=== PATIENT | female | born 1955 | race Caucasian/White ===

== ENCOUNTER 2016-09-24 13:45 | Emergency (ER) | payer BC ==
[2016-09-24 15:46] VITALS: BP 139/87
--- NOTE | 2016-09-24 16:30 | UC ---
Throat Pain/Nasal Chace HPI - HPI Summary HPI Summary: sinus pressure/pain, makes teeth ache. Ears feel plugged. Headaches. Malaise, low energy. Constant bloody post-nasal drip, can't blow secretions out her nose. Has had similar symptoms in past with sinusitis. MIld dry cough. Did have a cold last month, this seems to be the follow-on. Able to eat. No ST. - History of Current Complaint Chief Complaint: UCRespiratory Stated Complaint: SINUS COMPLAINT Time Seen by Provider: 09/24/16 15:41 Hx Obtained From: Patient Onset/Duration: Gradual Onset, Lasting Weeks - 3 Severity: Moderate Cough: Nonproductive Associated Signs & Symptoms: Positive: Sinus Discomfort. Negative: Dysphagia, FB Sensation, Wheezing, Hoarseness, Nasal Discharge, Fever, Vomiting, Rash - Epiglottits Risk Factors Epiglottis Risk Factors: Negative - Allergies/Home Medications Allergies/Adverse Reactions: Allergies Allergy/AdvReac Type Severity Reaction Status Date / Time Adhesive Tape Allergy Severe Rash Verified 09/24/16 15:47 Oxycodone Allergy Severe Rash And Verified 09/24/16 15:47 Itching Sulfa Drugs Allergy Intermediate Rash Verified 09/24/16 15:47 Atorvastatin [From Lipitor] Allergy Leg Cramps Verified 09/24/16 15:47 Hydrochlorothiazide Allergy Rash Verified 09/24/16 15:47 ENVIRONMENTAL/SEASONAL Allergy Congestion Uncoded 09/24/16 15:47 Home Medications: Home Medications Sertraline* [Zoloft*] 25 mg PO DAILY 09/24/16 [History Confirmed 09/24/16] Sitagliptin Phosphate [Januvia] 25 mg PO DAILY 09/24/16 [History Confirmed 09/24] PMH/Surg Hx/FS Hx/Imm Hx Endocrine History Of: Reports: Diabetes - insulin Cardiovascular History Of: Reports: Cardiac Disorders - heart murmur, Hypertension Denies: Myocardial Infarction Respiratory History Of: Reports: Asthma - HX OF NO INHALER USE IN OVER 10 YEARS Denies: COPD Psychological History Of: Reports: Anxiety, Depression Cancer History Of: Denies: Breast Cancer - Surgical History Surgical History: Yes Surgery Procedure, Year, and Place: HYSTERECTOMY, [facility] [place]. [address]AR[address], [facility] [place]. 2007 VARICOSE VEIN SURGERY, [facility] [place]. 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 Lives: With Family Alcohol Use: Daily Alcohol Amount: glass of wine daily Substance Use Type: None Smoking Status (MU): Never Smoked Tobacco - Immunization History Most Recent Influenza Vaccination: fall 2015 Most Recent Tetanus Shot: UP TO DATE Most Recent Pneumonia Vaccination: NA Review of Systems Constitutional: Negative Skin: Negative Eyes: Negative ENT: Ear Ache, Other - sinus pain Respiratory: Negative Cardiovascular: Negative Gastrointestinal: Negative Genitourinary: Negative Motor: Negative Neurovascular: Negative Musculoskeletal: Negative Neurological: Negative Psychological: Negative All Other Systems Reviewed And Are Negative: Yes Physical Exam Triage Information Reviewed: Yes Appearance: Well-Appearing, No Pain Distress, Well-Nourished Vital Signs: Initial Vital Signs Temp 98.7 F 09/24/16 15:39 Pulse 109 09/24/16 15:39 Resp 20 09/24/16 15:39 BP 139/87 09/24/16 15:39 Pulse Ox 96 09/24/16 15:39 Vital Signs Reviewed: Yes Eye Exam: Normal ENT: Positive: Hearing grossly normal, Pharynx normal, Nasal congestion, TMs normal. Negative: Nasal drainage, Tonsillar swelling, Tonsillar exudate, Trismus, Muffled/hoarse voice Dental Exam: Normal Neck exam: Normal Respiratory Exam: Normal Cardiovascular Exam: Normal Musculoskeletal Exam: Normal Neurological Exam: Normal Neurological: Positive: Alert, Muscle Tone Normal Psychological Exam: Normal Skin Exam: Normal Throat Pain/Nasal Course/Dx - Differential Dx/Diagnosis Differential Diagnosis/HQI/PQRI: Sinusitis, URI Provider Diagnoses: sinusitis Discharge - Discharge Plan Condition: Stable Disposition: HOME Prescriptions: Cephalexin CAP* [Keflex 500 CAP*] 500 mg PO QID #40 cap Fluconazole [Diflucan 150 MG (NF)] 150 mg PO ONCE PRN #1 tab PRN Reason: vaginal itching Patient Education Materials: Sinusitis (ED) Referrals: Moreno Crowley MD [Primary Care Provider] -
== END 2016-09-24 16:35 | disposition home or self-care (01) ==
LOC: UCCORT 13:45
DX: J32.9 Chronic sinusitis, unspecified (principal); E11.9 Type 2 diabetes mellitus without complications; F32.9 Major depressive disorder, single episode, unspecified; Z79.4 Long term (current) use of insulin; Z88.2 Allergy status to sulfonamides; Z88.5 Allergy status to narcotic agent; Z88.8 Allergy status to other drugs, medicaments and biological substances
CPT/HCPCS: 99212; G0463

== ENCOUNTER 2017-08-07 15:12 | Emergency (ER) | payer BC | END 2017-08-07 17:50 | disposition left against medical advice (07) | LOC: UCCORT 15:12 | DX: J34.89 Other specified disorders of nose and nasal sinuses (principal); Z53.21 Procedure and treatment not carried out due to patient leaving prior to being seen by health care provider ==

== ENCOUNTER 2018-10-18 10:57 | Emergency (ER) | payer BC ==
--- OUTSIDE RECORDS SUMMARY | 2018-10-18 12:55 | XMS REPORT | Continuity of Care Document ---
:1955 External Reference #:[id number] Author Name Balwinder Garcia DO Address [address] [place] [address] Care Team Providers Name Role Phone Etelvina Chance MD Care Team Information Rn Case Mgr Unavailable Etelvina Chance MD Primary Care Physician Unavailable Payers Date Identification Numbers Payment Provider Subscriber Policy Number: [id number] Darlene ROMO Yudelka Teresa Group Number: [id number] [address] [id number] PayID: [id number] [address] [place] [id number] Advance Directives Description No Information Available Problems Date Description Provider Status Onset: 06/29/2012 Gastroesophageal reflux disease KIKI Louise Active Onset: 06/29/2012 Essential hypertension KIKI Louise Active Onset: 06/29/2012 Type 2 diabetes mellitus KIKI Louise Active Family History Description No Information Available Social History Type Date Description Comments Sex Unknown ETOH Use Currently consumes alcohol Tobacco Use Start: Unknown Patient has never smoked Smoking Status Reviewed: 10/12/18 Patient has never smoked Allergies, Adverse Reactions, Alerts Date Description Reaction Status Severity Comments 06/29/2012 Sulfa Antibiotics rash Active 10/12/2018 Atorvastatin leg cramps Active 10/12/2018 Hydrochlorothiazide rash Active 10/12/2018 Oxycodone rash, itching Active 10/12/2018 Environmental Active 10/12/2018 Adhesives rash Active Medications Medication Date Status Form Strength Qnty SIG Indications Ordering Provider Clonazepam Active Tablets 0.5mg Wattoo,Mu /0000 MD katherine Pantoprazole Active Tablets DR 40mg Wat[place],Mu Sodium /0000 MD katherine Losartan Active Tablets 100mg Wat[place],Mu Potassium /0000 MD katherine Trazodone HCL Active Tablets 100mg [place], MD katherine Lantus Active Solution 100Unit/M 34 Units Unknown Solost Pen-Inject L Daily Methotrexate Active Tablets 2.5mg take 4 Unknown tablets by mouth every 7 days Trulicity Active Solution 0.75mg/0. Inject The Unknown Pen-Inject 5ML Contents Of One Pen 0.5ML Under The Skin Every Week Anusol-HC 03/16 Hx Suppository 25mg 20uni 1 Corey G. ts suppository , - by way of M.DSveta 01/18 rectum twice /2015 a day Glimepiride Hx Tablets 4mg Keo, MD katherine - 10/[address] Part 20mg Daily Unknown - 10/11 Immunizations Description No Information Available Vital Signs Date Vital Result Comment 10/12/2018 10:21am Height 65 inches 5'5" Weight 199.00 lb BP Systolic 114 mmHg BP Diastolic 94 mmHg Heart Rate 98 /min BMI (Body Mass Index) 33.1 kg/m2 09/15/2018 10:05am Height 65 inches 5'5" Weight 196.00 lb BMI (Body Mass Index) 32.6 kg/m2 01/19/2016 9:13am Height 65 inches 5'5" Weight 200.00 lb BP Systolic 138 mmHg BP Diastolic 95 mmHg Heart Rate 98 /min BMI (Body Mass Index) 33.3 kg/m2 03/16/2013 8:31am Height 65 inches 5'5" Weight 194.00 lb BP Systolic 110 mmHg BP Diastolic 80 mmHg Heart Rate 72 /min BMI (Body Mass Index) 32.3 kg/m2 06/29/2012 9:55am Height 65 inches 5'5" Weight 195.00 lb BP Systolic 140 mmHg BP Diastolic 82 mmHg Heart Rate 72 /min BMI (Body Mass Index) 32.4 kg/m2 Results Test Date Facility Test Result H/L Range Note CMP And Lipid 2018 [facility] Misc Other Test <pending> Liver Panel 2018 [facility] Alkaline <pending> Phosphatase(!) GGT-Gammaglytamyl Trans (!) <pending> Ast - Sgot <pending> Alt - SGPT <pending> LDH Ser/Plasma <pending> Bilirubin Total Mass/Vol(!) <pending> Bilirubin Direct Mass/Vol(!) <pending> Protein Total <pending> Albumin Serum/Plasma(!) <pending> Cholesterol Total Mass/Vol(!) <pending> Laboratory test 2018 [facility] Vitamin B12 Ser <pending> finding Mass/Vol CBC No Diff 10/17/2015 [facility] Hematocrit <pending> Hemoglobin Blood <pending> Platelet Count Blood Auto CNT <pending> RBC Red Blood Count <pending> RDW <pending> White Blood Count Ser Auto CNT <pending> MCH (Corpuscular Hemoglobin) <pending> MCHC (Corpuscular Hemog Conc) <pending> MPV <pending> MCV (Corpuscular Volume) <pending> CMP(!) 10/17/2015 [facility] Sodium(!) <pending> Potassium(!) <pending> Chloride Serum/Plasma(!) <pending> Carbon Dioxide Ser/Plasm(!) <pending> BUN - Urea Nitrogen(!) <pending> Calcium Ser/Plasma Mass/Vol(!) <pending> Creatinine Serum Mass/Vol(!) <pending> Glucose Serum(!) <pending> Uric Acid Ser/Plas Mass/Vol(!) <pending> BUN/Creatinine Ratio(!) <pending> Albumin Serum/Plasma(!) <pending> Alkaline Phosphatase(!) <pending> Bilirubin Total Mass/Vol(!) <pending> Ast - Sgot <pending> Alt - SGPT <pending> Protein Total <pending> Lipid Panel(!) 10/17/2015 [facility] Cholesterol Total <pending> Mass/Vol(!) HDL Cholesterol Mol/Vol <pending> 30-85 Triglycerides Ser/Plas(!) <pending> LDL Cholesterol Mass/Vol(!) <pending> Xray 10[place]17/2014 [facility] [place] Abdomen Limited <pending> Iron,Tibc,Fol,B12,F 03/11/2013 [facility] Z#Other Observations < pending> er CBC No Diff 03/11/2013 [facility] Hematocrit <pending> Hemoglobin Blood <pending> Platelet Count Blood Auto CNT <pending> RBC Red Blood Count <pending> RDW <pending> White Blood Count Ser Auto CNT <pending> MCH (Corpuscular Hemoglobin) <pending> MCHC (Corpuscular Hemog Conc) <pending> MPV <pending> MCV (Corpuscular Volume) <pending> David 04/21/2012 [facility] Z#Other Observations <pending> Xray 01/24/2010 [facility] [place] Abd/Pel W <pending> Procedures Date Code Description Status 03/30/2013 69232 Colonoscopy Completed 01/05/2009 65846 EGD+Biopsy Single Or Multiple Completed 09/23/2008 57146 Colonoscopy Completed Encounters Type Date Location Provider Dx Diagnosis Office Visit 01/19/2016 [facility] Shila Gold K62.89 Other specified 9:15a [facility] diseases of anus and rectum K61.0 Anal abscess K64.4 Residual hemorrhoidal skin tags Office Visit 05/10/2013 [facility] Corey Snider 562.11 Diverticulitis 3:45p [facility] Colon W/O Hemorrhage Office Visit 03/16/2013 [facility] Shila 569.3 Hemorrhage Rectum & 8:30a [facility] [employer] Office Visit 06/29/2012 [facility] Shila 530.81 Esophageal Reflux 10:00a [facility] 401.9 Hypertension Unspec 250.00 Diabetes Mellitus W/O Compl Type II Or Unspec Controlled Plan of Treatment Future Appointment(s):12/08/2018 8:45 am - Balwinder [facility] DO at [facility]10/12/2018 - Balwinder Garcia DOE11.9 Type 2 diabetes mellitus without [id number] Family history of malignant neoplasm of digestive organs
--- OUTSIDE RECORDS SUMMARY | 2018-10-18 12:55 | XMS REPORT | Continuity of Care Document ---
:1955 External Reference #:[id number] Author Name Etelvina Chance MD Address [address] [place] [address] Care Team Providers Name Role Phone Etelvina Chance MD Care Team Information Senior Sharepoint Developer Unavailable Etelvina Chance MD Primary Care Physician Unavailable Payers Date Identification Numbers Payment Provider Subscriber Policy Number: [id number] Camacho Teresa Group Number: [id number] [address] [id number] PayID: [id number] [place] [address] Advance Directives Description No Information Available Problems Date Description Provider Status Onset: 04/09/2016 Kirt Mccain M.D. Active Onset: 09/24/2017 Benign essential hypertension Etelvina Chance MD Active Onset: 09/24/2017 Pure hypercholesterolemia Etelvina Chance MD Active Onset: 09/29/2017 Type 2 diabetes mellitus Etelvina Chance MD Active Onset: 09/29/2017 Anxiety state Etelvina Chance MD Active Onset: 09/29/2017 Bladder muscle dysfunction - Etelvina Chance MD Active overactive Onset: 09/29/2017 Malaise and fatigue Etelvina Chance MD Active Onset: 09/29/2017 Age-related osteoporosis without Etelvina Chance MD Active current pathological fracture Onset: 11/04/2017 Impacted Kirt Saldivar M.D. 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 ADL's/IADL's Independent with all ADL's Tobacco Use Start: Unknown Never Smoked Cigarettes ETOH Use Uses Alcohol Daily glass of wine Tobacco Use Start: Unknown Patient has never smoked Recreational Drug Use Denies Drug Use Smoking Status Reviewed: 10/16/18 Patient has never smoked Allergies, Adverse Reactions, Alerts Date Description Reaction Status Severity Comments 04/09/2016 Sulfa rash Active 04/09/2016 Tape rash Active 04/09/2016 Atorvastatin muscle aches Active 04/09/2016 Metformin uncontrolled dm Active 04/09/2016 Oxycodone rash Active 12/05/2017 Pravastatin Active severe acid reflux 01/22/2018 Simvastatin Active GI issues 01/22/2018 Zetia Active GI issues 06/08/2018 Augmentin Active Severe diarrhea Medications Medication Date Status Form Strength Qnty SIG Indications Ordering Provider Hydrochlorothiazid 04/29 Active Tablets 12.5mg 90tab 1 tab by I10 Robson, s mouth every MD Etelvina day Sertraline HCL 09/29 Active Tablets 100mg 90tab 1 by mouth Robson, s every day MD Etelvina Pantoprazole 09/29 Active Tablets 40mg 90tab take one Robson, s tab daily MD Etelvina as needed for reflux Trazodone HCL Active Tablets 50mg 90tab 1 tab by Robson, / s mouth at MD Etelvina bedtime Losartan Potassium Active Tablets 100mg 90tab 1 by mouth Gagen, / s every day Marcia brower MS, RESIDENTIAL GAS HEAT TECHNICIAN-C, CNM Trulicity Active Solution 0.75mg/0. Subqutaneou Law, /0000 Pen-Injec 5ML s MD Balwinder t 0.75mg/0.5m l weekly Onetouch Ultra Active Strips Test twice Unknown / a day or as directed Clonazepam Active Tablets 0.5mg 60tab take 1 Robson, / s tablet MD Etelvina twice a day if needed for panic disorder Lantus Solostar Active Solution 100Unit/M Inject 53 Law, /0000 Pen-Injec L Units Under MD Balwinder t The Skin In The Morning Methotrexate 00 Active Tablets 2.5mg Delvalle, /0000 Ajit GUERRERO Zithromax Z-Sumeet 06/08 Hx Tablets 250mg 6tabs take two Gagen, tablets the Marcia - first day e, MS, 07/14 and then RESIDENTIAL GAS HEAT TECHNICIAN-C one tablet CNM the remaining 4 days Ipratropium 06/01 Hx Solution 0.06% 15ml use 2 J06.9 Gag, Neville sprays in Marcia - each e, MS, 07/14 nostril RESIDENTIAL GAS HEAT TECHNICIAN-C, twice a day CNM Amoxicillin/Clavul 06/01 Hx Tablets 875-125mg 14tab take one J01.80 Gagen, anate Potassium s tablet Marcia - every 12 e, MS, 06/08 hours RESIDENTIAL GAS HEAT TECHNICIAN-C CNM Welchol 04/23 Hx Tablets 625mg 180ta take three Robson, bs tablets MD Etelvina - twice a day 06/01 Welchol 01/26 Hx Tablets 625mg 180ta take three Robson, bs tablets MD Etelvina - twice a day 04/21 Pravastatin Sodium 10/13 Hx Tablets 20mg 30tab 1 tab by Robson, s mouth every MD Etelvina - evening 12/05 Glimepiride Hx Tablets 4mg 1 by mouth Unknown /0000 every day - 09/29 Pantoprazole Hx Tablets prn Unknown Sodium /0000 DR - 09/29 Medications Administered in Office Medication Date Status Form Strength Qnty SIG Indications Ordering Provider Methylprednisolone 09/07 Administered Injection Silverio Octavia (Depomedrol) 80mg MD andersen Methylprednisolone 07/30 Administered Injection sina Daniels BRAYAN [place] (Depomedrol) 80mg injection Methylprednisolone 05/12 Administered Injection sina Daniels BRAYAN [place] (Depomedrol) 80mg injection Immunizations CPT Code Status Date Vaccine Lot # [id number] Given 12/29/2017 Pneumovax Injection [id number] Vital Signs Date Vital Result Comment 10/16/2018 11:02am BP Systolic Sitting Right Arm 136 mmHg BP Diastolic Sitting Right Arm 90 mmHg Body Temperature 100.0 F Heart Rate 106 /min Respiratory Rate 18 /min O2 % BldC Oximetry 95 % ra 09/07/2018 11:48am BP Systolic 145 mmHg BP Diastolic 90 mmHg Body Temperature 97.5 F Heart Rate 100 /min Respiratory Rate 15 /min Height 64 inches 5'4" Weight 197.00 lb BMI (Body Mass Index) 33.8 kg/m2 BSA (Body Surface Area) 1.94 m2 [place] body weight in kilograms 54 kg O2 % BldC Oximetry 94 % room air Pain Level 4 08/12/2018 9:57am BP Systolic Sitting Left Arm 116 mmHg BP Diastolic Sitting Left Arm 78 mmHg Body Temperature 96.4 F Heart Rate 90 /min Respiratory Rate 12 /min Height 65 inches 5'5" Weight 195.00 lb BMI (Body Mass Index) 32.4 kg/m2 BSA (Body Surface Area) 1.96 m2 [place] body weight in kilograms 57 kg O2 % BldC Oximetry 97 % 07/30/2018 3:42pm BP Systolic Sitting Left Arm 130 mmHg BP Diastolic Sitting Left Arm 88 mmHg Body Temperature 98.6 F Heart Rate 109 /min Respiratory Rate 17 /min O2 % BldC Oximetry 95 % 07/14/2018 9:21am BP Systolic Sitting Left Arm 136 mmHg BP Diastolic Sitting Left Arm 88 mmHg Body Temperature 98.1 F Heart Rate 93 /min Respiratory Rate 17 /min Height 65 inches 5'5" Weight 196.00 lb BMI (Body Mass Index) 32.6 kg/m2 BSA (Body Surface Area) 1.96 m2 [place] body weight in kilograms 57 kg O2 % BldC Oximetry 98 % 06/01/2018 10:30am BP Systolic Sitting Left Arm 136 mmHg BP Diastolic Sitting Left Arm 87 mmHg Body Temperature 97.8 F Heart Rate 102 /min Respiratory Rate 18 /min Height 65 inches 5'5" Weight 196.00 lb BMI (Body Mass Index) 32.6 kg/m2 BSA (Body Surface Area) 1.96 m2 [place] body weight in kilograms 57 kg O2 % BldC Oximetry 95 % Ra 05/12/2018 9:05am BP Systolic Sitting Left Arm 148 mmHg BP Diastolic Sitting Left Arm 92 mmHg Body Temperature 96.7 F Heart Rate 101 /min Respiratory Rate 18 /min Weight 195.25 lb O2 % BldC Oximetry 95 % 04/29/2018 2:26pm BP Systolic 130 mmHg BP Diastolic 92 mmHg Body Temperature 98.5 F Heart Rate 97 /min Respiratory Rate 20 /min Weight 196.00 lb O2 % BldC Oximetry 97 % Ra Pain Level 0 04/21/2018 2:15pm BP Systolic Sitting Left Arm 152 mmHg Stacey 150/88 BP Diastolic Sitting Left Arm 94 mmHg Stacey 150/88 Body Temperature 97.6 F Heart Rate 102 /min Respiratory Rate 16 /min Height 65 inches 5'5" Weight 198.00 lb BMI (Body Mass Index) 32.9 kg/m2 BSA (Body Surface Area) 1.97 m2 [place] body weight in kilograms 57 kg O2 % BldC Oximetry 96 % 12/29/2017 9:48am BP Systolic Sitting Right Arm 143 mmHg Stacey 118/84 BP Diastolic Sitting Right Arm 87 mmHg Stacey 118/84 Heart Rate 94 /min Respiratory Rate 12 /min Height 65 inches 5'5" Weight 195.00 lb BMI (Body Mass Index) 32.4 kg/m2 BSA (Body Surface Area) 1.96 m2 [place] body weight in kilograms 57 kg 11/04/2017 9:02am BP Systolic Sitting Left Arm 140 mmHg BP Diastolic Sitting Left Arm 88 mmHg Body Temperature 97.8 F Heart Rate 100 /min Respiratory Rate 18 /min Height 65 inches 5'5" Weight 195.00 lb BMI (Body Mass Index) 32.4 kg/m2 BSA (Body Surface Area) 1.96 m2 [place] body weight in kilograms 57 kg O2 % BldC Oximetry 96 % 09/29/2017 9:43am BP Systolic Sitting Right Arm 139 mmHg BP Diastolic Sitting Right Arm 87 mmHg Heart Rate 102 /min Height 65 inches 5'5" Weight 195.00 lb BMI (Body Mass Index) 32.4 kg/m2 BSA (Body Surface Area) 1.96 m2 [place] body weight in kilograms 57 kg O2 % BldC Oximetry 97 % 04/09/2016 3:12pm BP Systolic Sitting Left Arm 130 mmHg BP Diastolic Sitting Left Arm 91 mmHg Heart Rate 99 /min Height 65 inches 5'5" Weight 200.00 lb BMI (Body Mass Index) 33.3 kg/m2 BSA (Body Surface Area) 1.98 m2 [place] body weight in kilograms 57 kg Results Test Date Facility Test Result H/L Range Note Influenza A/B 10/16/2018 [facility] Influenza A Negative (Negative) [address] [place] [address] [phone] Influenza B Antigen Negative (Negative) 2 Comp Metabolic Panel 08/08/2018 [facility] Glucose 127 mg/dL High 74-106 3 [address] [place], [place] [id number] [phone] BUN 21 mg/dL High 7-18 Creatinine 0.6 mg/dL N 0.6-1.3 Glom Filtration Rate, Estimate >60 mL/min >60 If >60 mL/min >60 4 BUN/Creat 35.0 ratio Sodium 140 mmol/L N 136-145 Potassium 4.0 mmol/L N 3.5-5.1 Chloride 104 mmol/L N 98-107 Carbon Dioxide 29 mmol/L N 21-32 Anion Gap 7 mEq/L Low 8-16 Calcium 8.7 mg/dL N 8.5-10.1 Total Protein 7.7 g/dL N 6.4-8.2 Albumin 3.7 g/dL N 3.4-5.0 Globulin 4.0 g/dL N 1.9-4.3 Alb/Glob 0.9 ratio Bilirubin,Total 0.4 mg/dL N 0.2-1.0 Sgot/Ast 22 U/L N 15-37 SGPT/Alt 39 U/L N 12-78 Alkaline Phosphatase 96 U/L N 45-117 Lipid Profile 08/08/2018 [facility] Cholesterol 284 mg/dL High <200 5 (Trig/Chol/HDL) [address] [place], [place] [id number] [phone] Triglycerides 75 mg/dL <150 6 HDL Cholesterol 77 mg/dL >40 7 LDL-Cholesterol 192 mg/dL < 100 8 Laboratory 08/08/2018 [facility] Vitamin 29.6 ng/mL Low 30.0-100.0 9 test finding [address],25[place] [address] [phone] Laboratory 08/08/2018 [facility] Antinuclear Negative . 10 test finding [address] Antibodies, [place] [address] [phone] CBC Auto Diff 08/08/2018 [facility] White Blood 5.0 K/uL N 3.1-10.[address] [place] [address] [phone] Red Blood Count 4.95 M/uL N 3.90-5.40 Hemoglobin 14.9 gm/dL N 11.6-15.8 Hematocrit 44.0 % N 36.0-46.1 Mean Cell Volume 88.9 fl N 80.9-99.0 Mean Corpuscular HGB 30.1 pg N 25.9-32.7 Mean Corpuscular HGB Conc 33.9 g/dL N 30.8-34.3 Platelet Count 275 K/uL N 155-360 Red Cell Distri Width SD 41.2 fl N 36-47 Red Cell Distri Width %CV 13.0 % N 11.7-14.4 Mean Platelet Volume 9.7 fL N 8.9-12.4 Neut% 46.8 % N 40.4-72.8 Lymph % 40.4 % N 20.0-42.0 Fountain % 8.2 % N 4.3-13.2 Eo% 3.6 % N 0.0-6.6 Bas% 1.0 % N 0.0-1.1 Neut# 2.34 K/uL N 1.8-7.0 Lymph # 2.02 K/uL N 1.0-4.0 Fountain # 0.41 K/uL N 0.3-0.9 Eos # 0.18 K/uL N 0.0-0.5 Baso # 0.05 K/uL N 0.0-0.1 Laboratory test 08/08/2018 [facility] Rheumatoid < 10.0 N 0.0-15.[address] Factor Screen IU/mL [place], [place] [address] [phone] Sedimentation Rate 8 mm/hr N 0-30 11 Thyroid Stim Hormone 3.85 uIU/mL N 0.30-4.20 Free T4 0.84 ng/dL N 0.76-1.46 CCP Igg/Iga 08/08/2018 [facility] CCP Igg/Iga 21 units High 0-[address] [place] [address] [phone] Throat Culture 06/01/2018 [facility] Throat Culture NORMAL 13, Complete [address] Complete THROAT FL 14 [place] [address] <SEE NOTE> [phone] Bacterial 06/01/2018 N2N/CCD Import Bacterial Normal throat culture throat culture Throat [facility] 01/13/2018 [facility] Vitamin D 27.6 ng/ mL N 20-50 test finding [phone] Total 25(Oh) CBC Auto Diff 01/13/2018 [facility] White Blood 4.6 N 3.5-10.8 [phone] Count 10^3/uL Red Blood Count 4.71 10^6/uL N 4.0-5.4 Hemoglobin 14.5 g/dL N 12.0-16.0 Hematocrit 42 % N 35-47 Mean Corpuscular Volume 88 fL N 80-97 Mean Corpuscular Hemoglobin 31 pg N 27-31 Mean Corpuscular HGB Conc 35 g/dL N 31-36 Red Cell Distribution Width 13 % N 10.5-15 Platelet Count 261 10^3/uL N 150-450 Mean Platelet Volume 8.9 um3 N 7.4-10.4 Abs Neutrophils 2.5 10^3/uL N 1.5-7.7 Abs Lymphocytes 1.5 10^3/uL N 1.0-4.8 Abs Monocytes 0.4 10^3/uL N 0-0.8 Abs Eosinophils 0.2 10^3/uL N 0-0.6 Abs Basophils 0 10^3/uL N 0-0.2 Abs Nucleated RBC 0 10^3/uL Granulocyte % 54.3 % N 38-83 Lymphocyte % 32.4 % N 25-47 Monocyte % 8.6 % High 0-7 Eosinophil % 3.7 % N 0-6 Basophil % 1.0 % N 0-2 Nucleated Red Blood Cells % 0.1 Comp Metabolic Panel 01/13/2018 [facility] Sodium 140 mmol/L N 139-145 [phone] Potassium 4.4 mmol/L N 3.5-5.0 Chloride 105 mmol/L N 101-111 Co2 Carbon Dioxide 27 mmol/L N 22-32 Anion Gap 8 mmol/L N 2-11 Glucose 163 mg/dL High 70-100 Blood Urea Nitrogen 18 mg/dL N 6-24 Creatinine 0.55 mg/dL N 0.51-0.95 BUN/Creatinine Ratio 32.7 High 8-20 Calcium 9.3 mg/dL N 8.6-10.3 Total Protein 6.8 g/dL N 6.4-8.9 Albumin 4.0 g/dL N 3.2-5.2 Globulin 2.8 g/dL N 2-4 Albumin/Globulin Ratio 1.4 N 1-3 Total Bilirubin 0.50 mg/dL N 0.2-1.0 Alkaline Phosphatase 78 U/L N 34-104 Alt 32 U/L N 7-52 Ast 24 U/L N 13-39 Egfr Non- 112.0 >60 Egfr 144.0 >60 15 Lipid Profile 01/13/2018 [facility] Triglycerides 90 mg/dL 16 (Trig/Chol/HDL) [phone] Cholesterol 251 mg/dL 17 HDL Cholesterol 61.6 mg/dL 18 LDL Cholesterol 171 mg/dL 19 Urine Dipstick 12/29/2017 [facility] Ua Color yellow Yellow Ua Clarity clear Clear Ua Leuko - Negative Ua Nitrite - Negative Ua Urobilinogen - Low 0.2 - 1.0 E.U./dL Ua Protein + Negative Ua PH 5 Low 6.5-7.5 Ua Blood - Negative Ua Specific [place] 1.030 1.010-1.030 Ua Ketones - Negative Ua Bilirubin - Negative Ua Glucose - Negative Lipid Profile 10/07/2017 [facility] Triglycerides 92 mg/dL 20 (Trig/Chol/HDL) [phone] Cholesterol 268 mg/dL 21 HDL Cholesterol 65.3 mg/dL 22 LDL Cholesterol 184 mg/dL 23 Laboratory test 10/07/2017 [facility] TSH (Thyroid 2.90 N 0.34-5.60 finding [phone] Stimulating mcIU/mL Horm) Free T4 0.90 ng/dL N 0.61-1.12 Vitamin B12 466 pg/mL N 180-914 24 Vitamin D Total 25(Oh) 24.4 ng/mL N 20-50 Comp Metabolic Panel 10/07/2017 [facility] Sodium 138 mmol/L N 133-145 [phone] Potassium 4.6 mmol/L N 3.5-5.0 Chloride 103 mmol/L N 101-111 Co2 Carbon Dioxide 29 mmol/L N 22-32 Anion Gap 6 mmol/L N 2-11 Glucose 181 mg/dL High 70-100 Blood Urea Nitrogen 18 mg/dL N 6-24 Creatinine 0.59 mg/dL N 0.51-0.95 BUN/Creatinine Ratio 30.5 High 8-20 Calcium 9.8 mg/dL N 8.6-10.3 Total Protein 7.1 g/dL N 6.4-8.9 Albumin 4.2 g/dL N 3.2-5.2 Globulin 2.9 g/dL N 2-4 Albumin/Globulin Ratio 1.4 N 1-3 Total Bilirubin 0.50 mg/dL N 0.2-1.0 Alkaline Phosphatase 67 U/L N 34-104 Alt 27 U/L N 7-52 Ast 20 U/L N 13-39 Egfr Non- 103.3 >60 Egfr 132.8 >60 25 CBC Auto Diff 10/07/2017 [facility] White Blood 5.2 10^3/uL N 3.5-10.8 [phone] Count Red Blood Count 4.66 10^6/uL N 4.0-5.4 Hemoglobin 14.3 g/dL N 12.0-16.0 Hematocrit 41 % N 35-47 Mean Corpuscular Volume 88 fL N 80-97 Mean Corpuscular Hemoglobin 31 pg N 27-31 Mean Corpuscular HGB Conc 35 g/dL N 31-36 Red Cell Distribution Width 13 % N 10.5-15 Platelet Count 268 10^3/uL N 150-450 Mean Platelet Volume 9 um3 N 7.4-10.4 Abs Neutrophils 2.7 10^3/uL N 1.5-7.7 Abs Lymphocytes 1.9 10^3/uL N 1.0-4.8 Abs Monocytes 0.5 10^3/uL N 0-0.8 Abs Eosinophils 0.2 10^3/uL N 0-0.6 Abs Basophils 0.1 10^3/uL N 0-0.2 Abs Nucleated RBC 0 10^3/uL Granulocyte % 51.0 % N 38-83 Lymphocyte % 35.8 % N 25-47 Monocyte % 8.7 % High 0-7 Eosinophil % 3.4 % N 0-6 Basophil % 1.1 % N 0-2 Nucleated Red Blood Cells % 0.1 Microalbumin,Random 09/29/2017 [facility] Microalbumin,Urine 51.9 < 20.0 [address] mg/[place] [address] [phone] 1 J06.9 2 Please Note: A POSITIVE result for influenza A and/or B antigen does not rule out a co-infection with other pathogens or identify any specific influenza A virus subtype. A NEGATIVE result for influenza A and/or B antigen does not preclude influenza virus infection and should not be the sole basis for treatment or other management decisions, since the antigen present in the specimen may be below the detection limit of the test. A NEGATIVE result is PRESUMPTIVE and it is recommended these results be confirmed by virus culture or an FDA-cleared influenza A and B molecular assay. Method: Trevena Chromatographic immunoassay 3 E78.5, M81.0, E11.9, I10, R53.82, M15.9 4 Note: Persistent reduction for 3 months or more in an eGFR <60 mL/min/1.73 m2 defines CKD. Patients with eGFR values >/=60 mL/min/1.73 m2 may also have CKD if evidence of persistent proteinuria is present. The original MDRD equation for estimated GFR is not valid for patients less than 18 years of age. Additional information may be found at www.kdoqi.org. 5 Reference Guidelines*: Desirable: ........... < 200 mg/dL Borderline High: ..... 200-239 mg/dL High: ................ >=240 mg/dL * The National Cholesterol Education Program (NCEP) 6 Reference Guidelines*: Normal: ............. < 150 mg/dL Borderline High: .... 150-199 mg/dL High: ............... 200-499 mg/dL Very High: .......... > 500 mg/dL * Source: National Cholesterol Education Program (NCEP) 7 Reference Guidelines*: Low HDL: ..... < 40 mg/dL Normal: ..... 40-60 mg/dL Desirable: ... > 60 mg/dL *The National Cholesterol Education Program(NCEP) 8 Reference Guidelines*: Optimal:........... <100 mg/dL Near Optimal....... 100-129 mg/dL Borderline High.... 130-159 mg/dL High............... 160-189 mg/dL Very High.......... >=190 mg/dL * Source: National Cholesterol Education Program (NCEP) 9 Vitamin D deficiency has been defined by the [place] [employer] and an Endocrine Society practice guideline as a level of serum 25-OH vitamin D less than 20 ng/mL (1,2). The Endocrine Society went on to further define vitamin D insufficiency as a level between 21 and 29 ng/mL (2). 1. IOM ([place] [employer]). 2010. Dietary reference intakes for calcium and D. [place]: The National Academies Press. 2. Omer MF, Kirstin NARVAEZ, Marianna WAY, et al. Evaluation, treatment, and prevention of vitamin D deficiency: an Endocrine Society clinical practice guideline. JCEM. 2010; 96(7):1911-30. Performed at: - [facility] [address] [id number] Elementary Librarian: Chichi Nelson MD, Phone: [phone] 10 Negative <1:80 Borderline 1:80 Positive >1:80 Performed at: [facility] [address] [id number] Elementary Librarian: Oskar Serrato MD, Phone: [phone] Performed at: [facility] [address] [id number] Elementary Librarian: Chichi Nelson MD, Phone: [phone] Method: Sediplast Modified Westergren 12 Negative <20 Weak positive 20 - 39 Moderate positive 40 - 59 Strong positive >59 13 J02.9 14 NORMAL THROAT HEVER 15 Because ethnic data is not always readily available, this report includes an eGFR for both -Americans and non- Americans. The National Kidney Disease Education Program (NKDEP) does not endorse the use of the MDRD equation for patients that are not between the ages of 18 and 70, are , have extremes of body size, muscle mass, or nutritional status, or are non- or non-. According to the National Kidney Foundation, irrespective of diagnosis, the stage of the disease is based on the level of kidney function: Stage Description GFR(mL/min/1.73 m(2)) 1 Kidney damage with normal or decreased GFR 90 2 Kidney damage with mild decrease in GFR 60-89 3 Moderate decrease in GFR 30-59 4 Severe decrease in GFR 15-29 5 Kidney failure <15 (or dialysis) 16 Desirable: <150 Borderline High: 150-199 High: 200-499 Very High: >500 17 Desirable: <200 Borderline High: 200-239 High: >239 18 Low: <40 Desirable: 40-60 High: >60 19 Desirable: <100 Near Optimal: 100-129 Borderline High: 130-159 High: 160-189 Very High: >189 20 Desirable: <150 Borderline High: 150-199 High: 200-499 Very High: >500 21 Desirable: <200 Borderline High: 200-239 High: >239 22 Low: <40 Desirable: 40-60 High: >60 23 Desirable: <100 Near Optimal: 100-129 Borderline High: 130-159 High: 160-189 Very High: >189 24 Normal Range 180 to 914 Indeterminate Range 145 to 180 Deficient Range <145 25 Because ethnic data is not always readily available, this report includes an eGFR for both -Americans and non- Americans. The National Kidney Disease Education Program (NKDEP) does not endorse the use of the MDRD equation for patients that are not between the ages of 18 and 70, are , have extremes of body size, muscle mass, or nutritional status, or are non- or non-. According to the National Kidney Foundation, irrespective of diagnosis, the stage of the disease is based on the level of kidney function: Stage Description GFR(mL/min/1.73 m(2)) 1 Kidney damage with normal or decreased GFR 90 2 Kidney damage with mild decrease in GFR 60-89 3 Moderate decrease in GFR 30-59 4 Severe decrease in GFR 15-29 5 Kidney failure <15 (or dialysis) 26 E11.9 Procedures Date Code Description Status 09/07/2018 Asp./Injection major joint Completed 07/30/2018 76809 Radiologic Exam Hip Unilateral With Pelvis 2-3 Views Completed 07/30/2018 63394 Radiology, L-S Spine Complete Completed 07/30/2018 Asp./Injection major joint Completed 05/12/2018 92546 Radiology, Shoulder: Two Views (Sso) Completed 05/12/2018 04073 Asp./Injection major joint Completed 01/13/2018 [id number] Bone Mineral Density Test Completed 11/04/2017 93131 Remove Impacted Cerumen Completed 10/21/2017 [id number] Mammogram Completed 03/11/2013 [id number] Colonoscopy Completed 09/23/2008 [id number] Colonoscopy Completed 06/27/2006 31105 Tympanometry Completed 06/27/2006 57718 Oopherectomy Completed 06/27/2006 91909 Myomectomy, Excision Of Fibroid Of Uterus Completed 06/27/2006 22962 Nasal Endoscopy, Diag. Completed Encounters Type Date Location Provider Dx Diagnosis Office Visit 10/16/2018 Primary Care Office Van Farrell06.9 Acute upper 11:00a [facility]AN [place] respiratory infection, unspecified Office Visit 09/07/2018 Orthopaedic Office Octavia Sawyer, M70.61 Trochanteric 9:45a bursitis, right hip M54.31 Sciatica, right side M54.5 Low back pain M70.62 Trochanteric bursitis, left hip Office Visit 08/12/2018 10:00a Primary Care Etelvina Chance, Z00.00 Encntr for Office general adult medical exam w/o abnormal findings E11.9 Type 2 diabetes mellitus without complications I10 Essential (primary) hypertension E78.5 Hyperlipidemia, unspecified R07.81 Pleurodynia M70.61 Trochanteric bursitis, right hip M15.9 Polyosteoarthritis, unspecified Office Visit 07/30/2018 3:30p Orthopaedic Office Myah Daniels, M54.5 Low back PA pain M70.61 Trochanteric bursitis, right hip M54.31 Sciatica, right side Office Visit 07/14/2018 Orthopaedic Myah Daniels, M75.41 Impingement 9:30a Office PA syndrome of right shoulder Office Visit 06/01/2018 Primary Care Patricia J01.80 Other acute 10:30a Office MS Gilma, sinusitis RESIDENTIAL GAS HEAT TECHNICIAN-C, CNM J02.9 Acute pharyngitis, unspecified J06.9 Acute upper respiratory infection, unspecified M75.41 Impingement syndrome of right shoulder I10 Essential (primary) hypertension Office Visit 05/12/2018 Orthopaedic Myah Daniels M75.41 Impingement 9:00a Office PA syndrome of right shoulder Office Visit 04/29/2018 Primary Care Jami, I10 Essential 2:30p Office BRAYAN [place] (primary) hypertension Office Visit 04/21/2018 Primary Care Etelvina Chance, I10 Essential 2:20p Office (primary) hypertension E78.5 Hyperlipidemia, unspecified M81.0 Age-related osteoporosis w/o current pathological fracture E11.9 Type 2 diabetes mellitus without complications M15.9 Polyosteoarthritis, unspecified M25.511 Pain in right shoulder R53.82 Chronic fatigue, unspecified Office Visit 12/29/2017 10:00a Primary Care Etelvina Chance, I10 Essential ( primary) Office MD hypertension E11.9 Type 2 diabetes mellitus without complications E78.5 Hyperlipidemia, unspecified M81.0 Age-related osteoporosis w/o current pathological fracture F41.9 Anxiety disorder, unspecified N32.81 Overactive bladder Z23 Encounter for immunization Office Visit 11/04/2017 9:00a Primary Care Vivi, H61.21 Impacted Office Tyrese Moralez. cerumen, right ear G47.00 Insomnia, unspecified Office Visit 09/29/2017 10:00a Primary Care Etelvina Chance, E11.9 Type 2 diabetes Office MD mellitus without complications I10 Essential (primary) hypertension F41.9 Anxiety disorder, unspecified R53.83 Other fatigue N32.81 Overactive bladder M81.0 Age-related osteoporosis w/o current pathological fracture Office Visit 04/09/2016 3:00p Orthopaedic Office Vivi, M62.831 Muscle spasm Tyrese Moralez. of [facility] Plan of Treatment Future Appointment(s):12/16/2018 10:20 am - Etelvina Chance MD at Primary Care Office
[2018-10-18 12:59] VITALS: BP 114/62
--- NOTE | 2018-10-18 13:15 | UC ---
HPI Febrile Illness - HPI Summary HPI Summary: Patient is a retired diabetic with RA, she has been on 5 weeks of medication for her rheumatoid arthritis. over the past 5 days has developed a fever and cough, sob, and urinary incontinence. fever reached 102. was tested for the flu on friday and was negative - History of Current Complaint Chief Complaint: UCRespiratory Time Seen by Provider: 10/18/18 13:04 Hx Obtained From: Patient Timing: Constant Initial Severity: Moderate Current Severity: Moderate Pain Intensity: 5 Aggravating Factors: Nothing Alleviating Factors: OTC Medicine Associated Signs and Symptoms: Chills, Myalgia - Allergy/Home Medications Allergies/Adverse Reactions: Allergies Allergy/AdvReac Type Severity Reaction Status Date / Time Adhesive Tape Allergy Severe Rash Verified 10/18/18 13:00 atorvastatin [From Lipitor] Allergy Leg Cramps Verified 10/18/18 13:00 hydrochlorothiazide Allergy Rash Verified 10/18/18 13:00 oxycodone Allergy Rash And Verified 10/18/18 13:00 Itching Sulfa (Sulfonamide Allergy Rash Verified 10/18/18 13:00 Antibiotics) ENVIRONMENTAL/SEASONAL Allergy Congestion Uncoded 10/18/18 13:00 Home Medications: Home Medications Dulaglutide [Trulicity] 0.75 mg SQ 10/18/18 [History] PMH/Surg Hx/FS Hx/Imm Hx Previously Healthy: Yes - Surgical History Surgical History: Yes Surgery Procedure, Year, and Place: HYSTERECTOMY, [facility] [place]. [address], [facility] [place]. 2007 VARICOSE VEIN SURGERY, [facility] [place]. part of Colon removed d/t diverticulitis . CATARACT - Family History Known Family History: Positive: None, Hypertension - Social History Alcohol Use: Daily Alcohol Amount: glass of wine daily Substance Use Type: None Smoking Status (MU): Never Smoked Tobacco - Immunization History Most Recent Influenza Vaccination: fall 2015 Most Recent Tetanus Shot: UP TO DATE Most Recent Pneumonia Vaccination: NA Review of Systems All Other Systems Reviewed And Are Negative: Yes Constitutional: Positive: Fever, Fatigue Skin: Positive: Negative Eyes: Positive: Negative ENT: Positive: Sore Throat Respiratory: Positive: Shortness Of Breath, Cough Cardiovascular: Positive: Negative Gastrointestinal: Positive: Negative Genitourinary: Positive: Other - incontinence Motor: Positive: Negative Neurovascular: Positive: Negative Musculoskeletal: Positive: Negative Neurological: Positive: Headache Psychological: Positive: Negative Is Patient Immunocompromised?: No Physical Exam Triage Information Reviewed: Yes Appearance: Well-Nourished, Ill-Appearing, Pain Distress Vital Signs: Initial Vital Signs Temp 98.4 F 10/18/18 12:54 Pulse 106 10/18/18 12:54 Resp 18 10/18/18 12:54 BP 114/62 10/18/18 12:54 Pulse Ox 95 10/18/18 12:54 Vital Signs Reviewed: Yes Eye Exam: Normal ENT: Positive: Pharyngeal erythema, Nasal congestion Dental Exam: Normal Neck exam: Normal Respiratory Exam: Normal Respiratory: Positive: No respiratory distress, No accessory muscle use, Decreased breath sounds - throughout, Wheezing, Inspiration Cardiovascular Exam: Normal Cardiovascular: Positive: No Murmur, Pulses Normal, Tachycardia Abdominal Exam: Normal Abdomen Description: Positive: Nontender, No Organomegaly, Soft Bowel Sounds: Positive: Present Musculoskeletal Exam: Normal Neurological Exam: Normal Psychological Exam: Normal Skin Exam: Normal Course/Dx - Course Course Of Treatment: hx obtained, exam performed ,meds reviewed, ua obtained, rapid strep neg, chest xray obtained and positive for LLL pneumonia, patient took tylenol prior to arrival - Febrile Illness Differential Diagnoses: Abscess, Cellulitis, Other: - pneumonia, strep pharyngitis - Diagnoses Provider Diagnosis: Left lower lobe pneumonia Discharge - Sign-Out/Discharge Documenting (check all that apply): Patient Departure All imaging exams completed and their final reports reviewed: No Studies - Discharge Plan Condition: Stable Disposition: HOME Prescriptions: Albuterol HFA INHALER* [Ventolin HFA Inhaler*] 2 puff INH Q4H PRN #1 mdi PRN Reason: Sob/Wheezing Amoxicillin PO (*) [Amoxicillin 500 MG CAP*] 1,000 mg PO TID #30 cap Patient Education Materials: Pneumonia (ED) Referrals: Etelvina Chance MD [Primary Care Provider] - Additional Instructions: 1. take the medication as prescribed. 2. Follow up with your primary or Rhuematologist to make sure things are improving. - Billing Disposition and Condition Condition: STABLE Disposition: Home
== END 2018-10-18 14:36 | disposition home or self-care (01) ==
LOC: UCCORT 10:57
DX: J18.1 Lobar pneumonia, unspecified organism (principal); E11.9 Type 2 diabetes mellitus without complications; M06.9 Rheumatoid arthritis, unspecified; R32 Unspecified urinary incontinence; Z91.09 Other allergy status, other than to drugs and biological substances; Z88.8 Allergy status to other drugs, medicaments and biological substances; Z88.5 Allergy status to narcotic agent; Z88.2 Allergy status to sulfonamides
CPT/HCPCS: 71046; 81003; 87651; 99212; G0463

== ENCOUNTER 2019-05-11 16:30 | Emergency (ER) | payer BC ==
--- OUTSIDE RECORDS SUMMARY | 2019-05-11 18:06 | XMS REPORT | Continuity of Care Document ---
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 Onset: 04/09/2016 Benign essential hypertension Etelvina Chance MD Onset: 09/24/2017 Pure hypercholesterolemia Etelvina Chance MD Onset: 09/24/2017 Type 2 diabetes mellitus Etelvina Chance MD Onset: 09/29/2017 Anxiety state Etelvina Chance MD Onset: 09/29/2017 Bladder muscle dysfunction - overactive Etelvina Chance MD Onset: 09/29/2017 Malaise and fatigue Etelvina Chance MD Onset: 09/29/2017 Age-related osteoporosis without current Etelvina Chance MD Onset: 09/29/2017 pathological fracture Impacted Kirt Saldivar M.D. Onset: 11/04/2017 Hyperlipidemia Etelvina Chance MD Onset: 12/29/2017 Disorder of shoulder Myah Daniels PA Onset: 05/12/2018 Rheumatoid arthritis Etelvina Chance MD Onset: 12/31/2018 Trochanteric bursitis Myah Daniels PA Onset: 12/22/2018 Right side sciatica Myah Daniels PA Onset: 12/22/2018 Low back pain Myah Daniels PA Onset: 12/22/2018 Contusion of hip Myah DanielsBRAYAN Onset: 02/23/2019 Localized, primary osteoarthritis of the Myah Daniels, PA Onset: 02/23/2019 pelvic region and thigh Contusion of wrist JeremiahMyahBRAYAN Onset: 02/23/2019 Sprain of wrist Myah Daniels PA Onset: 02/23/2019 Social History Type Date Description Comments Sex Unknown Tobacco Use Start: Unknown Never Smoked Cigarettes ETOH Use Uses Alcohol Daily glass of wine Tobacco Use Start: Unknown Patient has never smoked Recreational Drug Use Denies Drug Use Smoking Status Reviewed: 03/24/19 Patient has never smoked Allergies, Adverse Reactions, Alerts Active Allergies Reaction Severity Comments Date Sulfa rash 04/09/2016 Tape rash 04/09/2016 Atorvastatin muscle aches 04/09/2016 Metformin uncontrolled dm 04/09/2016 Oxycodone rash 04/09/2016 Pravastatin severe acid reflux 12/05/2017 Simvastatin GI issues 01/22/2018 Zetia GI issues 01/22/2018 Augmentin Severe diarrhea 06/08/2018 Medications Active Medications SIG Qnty Indications Ordering Date Provider Nitrofurantoin Monohyd 1 tab by mouth 10caps Robson, Macro twice a day x 5 MD Etelvina 9 100mg Capsules days Phenazopyridine HCL 1 tab by mouth 30tabs N39.0 Robson, 200mg three times a day MD Etelvina 9 Tablets for urinary symptoms Simethicone take one every 6 120units R14.0 Robson, 80mg Chewtabs hours as needed MD Etelvina 9 for bloating. Hydrochlorothiazide 1 tab by mouth 90tabs I10 Robson, 12.5mg every day MD Etelvina 8 Tablets Sertraline HCL 1 by mouth every 90tabs Robson, 100mg Tablets day MD Etelvina 8 Pantoprazole Sodium take one tab 90tabs Robson, 40mg daily as needed MD Etelvina [address] for reflux Leflunomide take 1 tablet by Mook, 20mg Tablets mouth once daily Ajit GUERRERO 0 Lantus Solostar Inject 53 Units Balwinder Kelley MD 100Unit/ML Under The Skin In 0 Solution Pen-Inject The Morning Clonazepam take 1 tablet 60tabs Robson, 0.5mg Tablets twice a day if MD Etelvina 0 needed for panic disorder Reference # [id number] Onetouch Ultra Blue Test twice a day Unknown Strips or as directed 0 Trulicity Subqutaneous Balwinder Kelley MD 0.75mg/0.5ML Solution 0.75mg/0.5ml 0 Pen-Inject weekly Losartan Potassium 1 by mouth every 90tabs Gagen, 100mg day Gilma, 0 Tablets MS, CONFIGURATION MANAGEMENT CONSULTANT-C, CNM Trazodone HCL 1 tab by mouth at 90tabs Robson, 50mg Tablets bedtime MD Etelvina 0 History Medications Metronidazole Take one twice a 20tabs R10.84 Etelvina Chance, 01/11/2019 - 500mg day 01/27/2019 Tablets Azithromycin take 2 tablets 6tabs J18.9 Etelvina Chance, 10/28/2018 - 250mg the first day 12/22/2018 Tablets and then 1 tablet for next 4 days orally Fluconazole take one pill 2tabs J18.9 Etelvina Chance, 10/28/2018 - 150mg Tablets now and 1 in 4 12/22/2018 days Benzonatate take one capsule 30caps J18.9 Etelvina Chance, 10/28/2018 - 200mg every 8 hours as 12/22/2018 Capsules needed Medications Administered in Office Medication SIG Qnty Indications Ordering Provider Date Depomedrol 40mg/1cc Myah Daniels PA 03/24/2019 (methylprednisolone acetate) Injection Methylprednisolone acetate Octavia Sawyer MD 09/07/2018 (Depomedrol) 80mg injection Injection Methylprednisolone acetate Myah Daniels PA 07/30/2018 (Depomedrol) 80mg injection Injection Methylprednisolone acetate Myah Daniels PA 05/12/2018 (Depomedrol) 80mg injection Injection Immunizations CPT Code Status Date Vaccine Lot # [id number] Given 12/29/2017 Pneumovax Injection [id number] Vital Signs Date Vital Result Comment 03/24/2019 10:50am BP Systolic 146 mmHg BP Diastolic 84 mmHg Body Temperature 98.0 F Heart Rate 98 /min Height 65 inches 5'5" Weight 183.00 lb BMI (Body Mass Index) 30.4 kg/m2 BSA (Body Surface Area) 1.90 m2 [place] body weight in kilograms 57 kg O2 % BldC Oximetry 95 % 03/03/2019 10:23am BP Systolic Sitting Right Arm 136 mmHg BP Diastolic Sitting Right Arm 80 mmHg Body Temperature 97.5 F Heart Rate 94 /min Respiratory Rate 24 /min Height 65 inches 5'5" Weight 184.00 lb BMI (Body Mass Index) 30.6 kg/m2 BSA (Body Surface Area) 1.91 m2 [place] body weight in kilograms 57 kg Results Test Date Facility Test Result H/L Range Note Ua RFX Micro & 03/03/2019 [facility] Urine Color YELLOW Yellow 1 Culture II [address] [place] [address] [phone] Urine Clarity CLEAR Clear Urine Glucose - Dipstick NEGATIVE mg/dL Negative Urine Bilirubin - Dipstick NEGATIVE Negative Urine Ketone NEGATIVE mg/dL Negative Urine Specific [place] 1.010 Normal 1.010-1.030 Urine Blood NEGATIVE Negative Urine PH 7.0 Normal 6.5-7.5 Urine Protein - Dipstick NEGATIVE mg/dL Negative Urine Urobilinogen - Dipstick 0.2 E.U./dL Normal 0.2-1.0 Urine Nitrite - Dipstick NEGATIVE Negative Urine Leuk Esterase TRACE Abnormal Negative Urine RBC NONE SEEN rbc/hpf 0-2 Urine WBC 5-10 wbc/hpf 0-7 Urine Epithelial Cells FEW /lpf None Seen Urine Bacteria FEW None Seen Urine Culture 03/03/2019 [facility] Urine Culture NO GROWTH: [address] FINAL <[place] [address] NOTE> [phone] Urine Dipstick 03/03/2019 [facility] Ua Color yellow Yellow Ua Clarity clear Clear Ua Leuko 1+ High Negative Ua Nitrite negative Negative Ua Urobilinogen negative Low 0.2 - 1.0 E.U./dL Ua Protein negative Negative Ua PH 8.0 High 6.5-7.5 Ua Blood negative Negative Ua Specific [place] 1.015 1.010-1.030 Ua Ketones negative Negative Ua Bilirubin negative Negative Ua Glucose negative Negative LDL Cholesterol 12/18/2018 [facility] Triglycerides 99 mg/dL 3 Profile [phone] Cholesterol 255 mg/dL 4 HDL Cholesterol 60.7 mg/dL 5 LDL Cholesterol 175 mg/dL 6 Urine Microalbumin 12/18/2018 [facility] Ur Microalbumin 85.2 mg/L Random [phone] (mg/L) Urine Creatinine 187.06 mg/dL Urine Microalbumin/Creatinine 45.5 High <31 Basic Metabolic 12/18/2018 [facility] Sodium 140 mmol /L Normal 135-145 Panel [phone] Potassium 4.2 mmol/L Normal 3.5-5.0 Chloride 107 mmol/L Normal 101-111 Co2 Carbon Dioxide 26 mmol/L Normal 22-32 Anion Gap 7 mmol/L Normal 2-11 Glucose 185 mg/dL High 70-100 Blood Urea Nitrogen 19 mg/dL Normal 6-24 Creatinine 0.50 mg/dL Low 0.51-0.95 BUN/Creatinine Ratio 38.0 High 8-20 Calcium 9.2 mg/dL Normal 8.6-10.3 Egfr Non- 124.6 >60 Egfr 150.8 >60 7 Laboratory 12/18/2018 [facility] Hemoglobin 6.9 % High 4.0-5.6 8 test finding [phone] A1c (Glyco HGB) Laboratory 12/08/2018 [facility] Surgical SEE RESULT 9, 10 test finding [phone] Interface BELOW Order Laboratory 10/18/2018 [facility] Rapid Strep Negative Negative 11 test finding [phone] Molecular Poc Urinalysis 10/18/2018 [facility] Poc Glucose, Negative Negative [phone] Urine Poc Bilirubin, Urine 1+ Abnormal Negative Poc Ketone, Urine 2+ Abnormal Negative Poc Specific [place], Urine 1.015 Normal 1.010-1.030 Poc Blood, Urine Negative Negative Poc pH, Urine 6.0 Normal 5-9 Poc Protein, Urine Trace Abnormal Negative Poc Urobilinogen, Urine 1.0 Negative Poc Nitrite, Urine Negative Negative Poc Leukocytes, Urine Negative Negative Poc Color, Urine Yellow Poc Clarity, Urine Slightly Cloudy 12 Laboratory Studies 10/18/2018 N2N/[facility] Import Bedside Urine pH (Lab) 6.0 5-9 Bedside Urine Urobilinogen (Lab) 1.0 Bedside Urine Specific [place] (Lab 1.015 1.010-1.030 Laboratory Studies 10/18/2018 N2N/CCD Import Bedside Urine Urobilinogen 1.0 (Lab) Bedside Urine Specific [place] (Lab 1.015 1.010-1.030 Laboratory 10/18/2018 N2N/CCD Import Bedside Urine 1.015 1.010-1.030 Studies Specific [place] (Lab Influenza A/B 10/16/2018 [facility] Influenza A Negative (Negative) [address] [place] [address] [phone] Influenza B Antigen Negative (Negative) 14 1 N39.0 2 NO GROWTH: FINAL REPORT 3 Desirable: <150 Borderline High: 150-199 High: 200-499 Very High: >500 4 Desirable: <200 Borderline High: 200-239 High: >239 5 Low: <40 Desirable: 40-60 High: >60 6 Desirable: <100 Near Optimal: 100-129 Borderline High: 130-159 High: 160-189 Very High: >189 7 Because ethnic data is not always readily [...] 15-29 5 Kidney failure <15 (or dialysis) 8 Therapeutic target for the treatment of diabetes mellitus patients is <7% HBA1C, and in selective patients <6.0%. Please refer to [place] Diabetes Association diabetic care guidelines for further information. 9 [id number] SEE RESULT BELOW Name: AWAIS RICHEY : [address]: Balwinder Garcia DO Acct: [id number] Unit: [id number] AGE: 63 Location: [facility] Re12/08/18 SEX: F Status: DEP REF SPEC: [id number] JORGE: 12/08/[address]: Balwinder Garcia DO REQ: [id number] RECD: 12/08/18 STATUS: JAMIA KELLER DR: Etelvina Chance MD _ ORDERED: LEVEL 4 COMMENTS: [id number] FINAL DIAGNOSIS Colon, cecum, biopsy: -- Hyperplastic polyp. -- No adenomatous features identified. CLINICAL HISTORY Family history of colorectal carcinoma POST-OPERATIVE DIAGNOSIS Colonoscopy: to cecum; good prep; biopsy polypectomy; cecum polyp; moderate rubio diverticulosis coli; left greater than right; anastomosis; external hemorrhoids GROSS DESCRIPTION The specimen is received in formalin labeled, Cecal Polyp Biopsy, and consists of two fernandez-white irregular to polypoid soft tissue fragments averaging 0.5 x 0.3 x 0.2 cm, which are entirely submitted in one cassette. Signed by and Reported on: Chet Pineda MD 08/29 1149 END OF REPORT DEPARTMENT OF PATHOLOGY, [address] [place] [address] Chet Pineda M.D. Director [facility] # [id number] 11 Hatchery Helper: [id number] 12 Hatchery Helper: [id number] 13 J06.9 14 Please Note: A POSITIVE result for influenza [...] influenza A and B molecular assay. Method: [employer] Chromatographic immunoassay Procedures Date Code Description Status 03/24/2019 11724 Asp./Injection major joint Completed 02/23/2019 12103 Radiologic Exam Hip Unilateral With Pelvis 2-3 Views Completed 02/23/2019 85131 Radiology, Wrist Complete Completed 01/27/2019 49776 Remove Impact Cerumen Irrigati Completed 01/20/2019 75143 Stress Test Interpre And Report Only Completed 01/20/2019 73602 Stress Test Physician Super Only Completed 01/20/2019 64388 Myocardial Imaging Tomographic Multiple Study AT Rest Completed Or Stress 12/31/2018 [id number] Diabetic Foot Exam Completed 12/08/2018 [id number] Colonoscopy Completed 11/09/2018 [id number] Mammogram Completed 01/13/2018 604658028 Bone Mineral Density Test Completed 10/21/2017 11344797 Mammogram Completed 09/23/2008 [id number] Colonoscopy Completed Medical Devices Description No Information Available Encounters Type Date Location Provider Dx Diagnosis Office Visit 03/24/2019 Orthopaedic Office Myah Daniels, M70.61 Trochanteric 10:45a PA bursitis, right hip S70.01xD Contusion of right hip, subsequent encounter Office Visit 03/03/2019 10:20a Primary Care Robson, N39.0 Urinary tract Office MD Etelvina infection, site not specified Office Visit 02/23/2019 10:45a Orthopaedic Office Jeremiah, M25.531 Pain in right Myah, PA wrist M25.551 Pain in right hip S70.01xA Contusion of right hip, initial encounter M16.11 Unilateral primary osteoarthritis, right hip S60.211A Contusion of right wrist, initial encounter S63.501A Unspecified sprain of right wrist, initial encounter Office Visit 01/27/2019 1:00p Primary Care Etelvina Chance, R06.02 Shortness of Office breath I10 Essential (primary) hypertension R19.7 Diarrhea, unspecified H61.21 Impacted cerumen, right ear Office Visit 01/11/2019 3:00p Primary Care Patricia, R10.84 Generalized Office Gilma, MS, abdominal pain CONFIGURATION MANAGEMENT CONSULTANT-C, CNM R14.0 Abdominal distension (gaseous) Office Visit 12/31/2018 9:20a Primary Care Etelvina Chance, M06.9 Rheumatoid Office arthritis, unspecified E11.9 Type 2 diabetes mellitus without complications I10 Essential (primary) hypertension E78.5 Hyperlipidemia, unspecified R06.02 Shortness of breath Office Visit 12/22/2018 Orthopaedic Myah Daniels, M70.62 Trochanteric 11:15a Office PA bursitis, left hip M70.61 Trochanteric bursitis, right hip M54.31 Sciatica, right side M54.5 Low back pain Office Visit 10/28/2018 1:00p Primary Care Gilma Gomez J18.9 Pneumonia, Office MS, CONFIGURATION MANAGEMENT CONSULTANT-C, CNM unspecified organism J06.9 Acute upper respiratory infection, unspecified M06.9 Rheumatoid arthritis, unspecified Office Visit 10/16/2018 11:00a Primary Care Van Farrell06.9 Acute upper Office BRAYAN [place] respiratory infection, unspecified R50.9 Fever, unspecified Assessments Date Code Description Provider 03/24/2019 M70.61 Trochanteric bursitis, right hip Myah Daniels PA 03/24/2019 S70.01xD Contusion of right hip, subsequent Myah Daniels PA encounter 03/03/2019 N39.0 Urinary tract infection, site not Etelvina Chance MD specified 02/23/2019 M25.531 Pain in right wrist Myah Daniels PA 02/23/2019 M25.551 Pain in right hip Myah Daniels PA 02/23/2019 S70.01xA Contusion of right hip, initial Myah Daniels PA encounter 02/23/2019 M16.11 Unilateral primary osteoarthritis, Myah Daniels PA right hip 02/23/2019 S60.211A Contusion of right wrist, initial Myah Daniels PA encounter 02/23/2019 S63.501A Unspecified sprain of right wrist, Myah Daniels PA initial encounter 01/27/2019 R06.02 Shortness of breath Etelvina Chance MD 01/27/2019 I10 Essential (primary) hypertension Etelvina Chance MD 01/27/2019 R19.7 Diarrhea, unspecified Etelvina Chance MD 01/27/2019 H61.21 Impacted cerumen, right ear Etelvina Chance MD 01/20/2019 R06.02 Shortness of breath Jose Eduardo Castellon M.D., [facility] 01/11/2019 R10.84 Generalized abdominal pain Gilma Gomez MS, CONFIGURATION MANAGEMENT CONSULTANT-C, [facility] 01/11/2019 R14.0 Abdominal distension (gaseous) Gilma Gomez MS, CONFIGURATION MANAGEMENT CONSULTANT-C , [facility] 12/31/2018 M06.9 Rheumatoid arthritis, unspecified Etelvina Chance MD 12/31/2018 E11.9 Type 2 diabetes mellitus without Etelvina Chance MD complications 12/31/2018 I10 Essential (primary) hypertension Etelvina Chance MD 12/31/2018 E78.5 Hyperlipidemia, unspecified Etelvina Chance MD 12/31/2018 R06.02 Shortness of breath Etelvina Chance MD 12/22/2018 M70.62 Trochanteric bursitis, left hip Myah Daniels PA 12/22/2018 M70.61 Trochanteric bursitis, right hip Myah Daniels PA 12/22/2018 M54.31 Sciatica, right side Myah Daniels PA 12/22/2018 M54.5 Low back pain Myah Daniels PA 12/16/2018 M06.9 Rheumatoid arthritis, unspecified Etelvina Chance MD 12/16/2018 E11.9 Type 2 diabetes mellitus without Etelvina Chance MD complications 12/16/2018 I10 Essential (primary) hypertension Etelvina Chance MD 12/16/2018 E78.5 Hyperlipidemia, unspecified Etelvina Chance MD 10/28/2018 J18.9 Pneumonia, unspecified organism Patricia, Gilma, MS, CONFIGURATION MANAGEMENT CONSULTANT- C, CNM 10/28/2018 J06.9 Acute upper respiratory infection, Gagen, Gilma, MS, CONFIGURATION MANAGEMENT CONSULTANT-C, unspecified CNM 10/28/2018 M06.9 Rheumatoid arthritis, unspecified Gagen, Gilma, MS, CONFIGURATION MANAGEMENT CONSULTANT-C, CNM 10/16/2018 J06.9 Acute upper respiratory infection, Pennie Farrell PA unspecified 10/16/2018 R50.9 Fever, unspecified Pennie Farrell PA Plan of Treatment 03/24/2019 - Myah Daniels, PAM70.61 Trochanteric bursitis, right hipComments: Patient has done well with the steroid injection in the past, she would like to proceed with repeat injection today. Verbal consent was obtained for a right hip injection. Patient was injected today into the right lateral hip with 80 mg Depo-Medrol, 4 cc 2% lidocaine, and 2 cc of 0.25% Marcaine after sterile prep with chlorhexidine. Patient tolerated the injection well and was dressed with a Band-Aid. She'll continue with her home exercise program from physical therapy. She will follow up on anas-needed basis.S70.01xD Contusion of right hip, subsequent encounter Functional Status Functional Condition Comment Date Status Independent with all ADL's Active Mental Status Description No Information Available Referrals Description No Information Available
--- OUTSIDE RECORDS SUMMARY | 2019-05-11 18:06 | XMS REPORT | Continuity of Care Document ---
:1955 External Reference #:[id number] Author Name Etelvina Chance MD Address [address] [place] [address] Care Team Providers Name Role Phone Etelvina Chance MD - Internal Medicine Care Team Information Trash Collector Balwinder Kelley MD - Endocrinology, Care Team Information Trash Collector Diabetes & Metabolism Problems Active Problems Provider [...] Daniels PA Onset: 12/22/2018 Contusion of hip JeremiahMyahBRAYAN Onset: 02/23/2019 Localized, primary osteoarthritis of the JeremiahMyah, BRAYAN Onset: 02/23/2019 pelvic region and thigh Contusion of wrist JeremiahDavonBRAYAN sams Onset: 02/23/2019 Sprain of wrist JeremiahMyahBRAYAN Onset: 02/23/2019 Social History Type Date Description Comments Sex Unknown Tobacco Use Start: Unknown Never Smoked Cigarettes ETOH Use Uses Alcohol Daily glass of wine Tobacco Use Start: Unknown Patient has never smoked Recreational Drug Use Denies Drug Use Smoking Status Reviewed: 03/29/19 Patient has never smoked Allergies, Adverse Reactions, Alerts Active Allergies Reaction Severity Comments Date Sulfa rash 04/09/2016 Tape rash 04/09/2016 Atorvastatin muscle aches 04/09/2016 Metformin uncontrolled dm 04/09/2016 Oxycodone rash 04/09/2016 Pravastatin severe acid reflux 12/05/2017 Simvastatin GI issues 01/22/2018 Zetia GI issues 01/22/2018 Augmentin Severe diarrhea 06/08/2018 Medications Active Medications SIG Qnty Indications Ordering Date Provider Hydrochlorothiazide 1 tab by mouth 90tabs I10 Etelvina Chance, 12.5mg every day MD 8 Tablets Sertraline HCL 1 by mouth every 90tabs Etelvina Chance, 100mg Tablets day MD 8 Pantoprazole Sodium take one tab daily 90tabs Tonya Chancea, 40mg as needed for MD [address] reflux Leflunomide take 1 tablet by Mook, 20mg Tablets mouth once daily Ajit GUERRERO 0 Lantus Solostar Inject 53 Units Balwinder Kelley MD 100Unit/ML Under The Skin In 0 Solution Pen-Inject The Morning Clonazepam take 1 tablet 60tabs Etelvina Chance, 0.5mg Tablets twice a day if MD 0 needed for panic disorder Onetouch Ultra Blue Test twice a day Unknown Strips or as directed 0 Trulicity Subqutaneous Balwinder Kelley MD 0.75mg/0.5ML Solution 0.75mg/0.5ml 0 Pen-Inject weekly Losartan Potassium 1 by mouth every 90tabs Gagen, 100mg day Gilma, 0 Tablets MS, MEDICAL CLAIMS MANAGER-C, CNM Trazodone HCL 1 tab by mouth at 90tabs RobsonEtelvina, 50mg Tablets bedtime 0 History Medications Nitrofurantoin Monohyd 1 tab by mouth 10caps RobsonEtelvina, 03/03/2019 - Macro twice a day x 5 MD 03/29/2019 100mg Capsules days Phenazopyridine HCL 1 tab by mouth 30tabs N39.0 Robson Etelvina, 03/03/2019 - 200mg three times a MD 03/29/2019 Tablets day for urinary symptoms Simethicone take one every 120units R14.0 Etelvina Chance, 01/11/2019 - 80mg Chewtabs 6 hours as 03/29/2019 needed for bloating. Metronidazole Take one twice 20tabs R10.84 Robson Etelvina, 01/11/2019 - 500mg Tablets a day 01/27/2019 Azithromycin take 2 tablets 6tabs J18.9 Robson Etelvina, 10/28/2018 - 250mg Tablets the first day MD 12/22/2018 and then 1 tablet for next 4 days orally Fluconazole take one pill 2tabs J18.9 RobsonTonyaa, 10/28/2018 - 150mg Tablets now and 1 in 4 MD 12/22/2018 days Benzonatate take one 30caps J18.9 RobsonEtelvina bean, 10/28/2018 - 200mg Capsules capsule every 8 MD 12/22/2018 hours as needed Medications Administered in Office Medication SIG Qnty Indications Ordering Provider Date Depomedrol 40mg/1cc Myah Daniels PA 03/24/2019 (methylprednisolone acetate) Injection Methylprednisolone acetate Octavia Sawyer MD 09/07/2018 (Depomedrol) 80mg injection Injection Methylprednisolone acetate Myah Daniels PA 07/30/2018 (Depomedrol) 80mg injection Injection Methylprednisolone acetate Myah Daniels PA 05/12/2018 (Depomedrol) 80mg injection Injection Immunizations CPT Code Status Date Vaccine Lot # [id number] Given 12/29/2017 Pneumovax Injection [id number] Vital Signs Date Vital Result Comment 03/29/2019 9:58am BP Systolic Sitting Right Arm 142 mmHg BP Diastolic Sitting Right Arm 82 mmHg Body Temperature 96.8 F Heart Rate 84 /min Respiratory Rate 18 /min Height 65 inches 5'5" Weight 181.00 lb BMI (Body Mass Index) 30.1 kg/m2 BSA (Body Surface Area) 1.90 m2 [place] body weight in kilograms 57 kg O2 % BldC Oximetry 97 % 03/24/2019 10:50am BP Systolic 146 mmHg BP Diastolic 84 mmHg Body Temperature 98.0 F Heart Rate 98 /min Height 65 inches 5'5" Weight 183.00 lb BMI (Body Mass Index) 30.4 kg/m2 BSA (Body Surface Area) 1.90 m2 [place] body weight in kilograms 57 kg O2 % BldC Oximetry 95 % Results Test Date Facility Test Result H/L Range Note Ua RFX Micro & 03/03/2019 [facility] Urine Color YELLOW Yellow 1 Culture II [address] [place], [place] [id number] [phone] Urine Clarity CLEAR Clear Urine Glucose - Dipstick NEGATIVE mg/dL Negative Urine Bilirubin - Dipstick NEGATIVE Negative Urine Ketone NEGATIVE mg/dL Negative Urine Specific Brandon 1.010 Normal 1.010-1.030 Urine Blood NEGATIVE Negative [...] Bacteria FEW None Seen Urine Culture 03/03/2019 [facility] Urine Culture NO GROWTH: 2 [address] <[place] [address] NOTE> [phone] Urine Dipstick 03/03/2019 [facility] Ua Color yellow Yellow Ua Clarity clear Clear Ua Leuko 1+ High Negative Ua Nitrite negative Negative Ua Urobilinogen negative Low 0.2 - 1.0 E.U./dL Ua Protein negative Negative Ua PH 8.0 High 6.5-7.5 Ua Blood negative Negative Ua Specific Brandon 1.015 1.010-1.030 Ua Ketones negative Negative Ua Bilirubin negative Negative Ua Glucose negative Negative LDL Cholesterol 12/18/2018 [facility] Triglycerides 99 mg/dL 3 Profile [phone] Cholesterol 255 mg/dL 4 HDL Cholesterol 60.7 mg/dL 5 LDL Cholesterol 175 mg/dL 6 Urine Microalbumin 12/18/2018 [facility] Ur Microalbumin 85.2 mg/L Random [phone] (mg/L) Urine Creatinine 187.06 mg/dL Urine Microalbumin/Creatinine 45.5 High <31 Basic Metabolic 12/18/2018 [facility] Sodium 140 mmol /L Normal 135-145 Panel [phone] Potassium 4.2 mmol/L Normal 3.5-5.0 Chloride 107 mmol/L Normal 101-111 Co2 Carbon Dioxide 26 mmol/L Normal 22-32 Anion Gap 7 mmol/L Normal 2-11 Glucose 185 mg/dL High 70-100 Blood Urea Nitrogen 19 mg/dL Normal 6-24 Creatinine 0.50 mg/dL Low 0.51-0.95 BUN/Creatinine Ratio 38.0 High 8-20 Calcium 9.2 mg/dL Normal 8.6-10.3 Egfr Non- 124.6 >60 Egfr 150.8 >60 7 Laboratory 12/18/2018 [facility] Hemoglobin 6.9 % High 4.0-5.6 8 test finding [phone] A1c (Glyco HGB) Laboratory 12/08/2018 [facility] Surgical SEE RESULT 9, 10 test finding [phone] Interface BELOW Order Laboratory 10/18/2018 [facility] Rapid Strep Negative Negative 11 test finding [phone] Molecular Poc Urinalysis 10/18/2018 [facility] Poc Glucose, Negative Negative [phone] Urine Poc Bilirubin, Urine 1+ Abnormal Negative Poc Ketone, Urine 2+ Abnormal Negative Poc Specific Brandon, Urine 1.015 Normal 1.010-1.030 Poc Blood, Urine [...] Urine Urobilinogen (Lab) 1.0 Bedside Urine Specific Brandon (Lab 1.015 1.010-1.030 Laboratory Studies 10/18/2018 N2N/CCD Import Bedside Urine Urobilinogen 1.0 (Lab) Bedside Urine Specific [place] (Lab 1.015 1.010-1.030 Laboratory 10/18/2018 N2N/CCD Import Bedside Urine 1.015 1.010-1.030 Studies Specific Brandon (Lab Influenza A/B 10/16/2018 [facility] Influenza A Negative (Negative) [address] [place] [address] [phone] Influenza B Antigen Negative (Negative) 14 1 [...] in selective patients <6.0%. Please refer to [employer] diabetic care guidelines for further information. 9 [id number] SEE RESULT BELOW Name: AWAIS TERESA : [address]: Balwinder Garcia DO Acct: [id number] Unit: [id number] AGE: 63 Location: [facility] Re12/08/18 SEX: F Status: DEP REF SPEC: [id number] JORGE: 12/08/18-[address] [facility] [address]: Balwinder Garcia DO REQ: [id number] RECD: 12/08/18-1315 STATUS: JAMIA KELLER DR: Etelvina Chance MD _ ORDERED: LEVEL 4 COMMENTS: [id number] FINAL DIAGNOSIS Colon, cecum, biopsy: -- Hyperplastic [...] 1149 END OF REPORT DEPARTMENT OF PATHOLOGY, [address] [place] [address] Chet Pineda M.D. Director [facility] # [id number] 11 Delivery Consultant: [id number] 12 Delivery Consultant: [id number] 13 J06.9 14 Please Note: A POSITIVE [...] influenza A and B molecular assay. Method: Fashism Chromatographic immunoassay Procedures Date Code Description Status 03/24/2019 61500 Asp./Injection major joint Completed 02/23/2019 80826 Radiologic Exam Hip Unilateral With Pelvis 2-3 Views Completed 02/23/2019 95344 Radiology, Wrist Complete Completed 01/27/2019 07394 Remove Impact Cerumen Irrigati Completed 01/20/2019 61548 Stress Test Interpre And Report Only Completed 01/20/2019 32149 Stress Test Physician Super Only Completed 01/20/2019 33577 Myocardial Imaging Tomographic Multiple Study AT Rest Completed Or Stress 12/31/2018 [id number] Diabetic Foot Exam Completed 12/08/2018 31213614 Colonoscopy Completed 11/09/2018 78703280 Mammogram Completed 01/13/2018 [id number] Bone Mineral Density Test Completed 10/21/2017 [id number] Mammogram Completed 09/23/2008 [id number] Colonoscopy Completed Medical Devices Description No Information Available Encounters Type Date Location Provider Dx Diagnosis Office Visit 03/24/2019 Orthopaedic Office Jeremiah, Myah, M70.61 Trochanteric 10:45a PA bursitis, right hip [...] Care Etelvina Chance, R06.02 Shortness of Office MD breath I10 Essential (primary) hypertension R19.7 Diarrhea, unspecified H61.21 Impacted cerumen, right ear Office Visit 01/11/2019 3:00p Primary Care Patricia, R10.84 Generalized Office MS Gilma, abdominal pain MEDICAL CLAIMS MANAGER-C, CNM R14.0 Abdominal distension (gaseous) Office Visit [...] Office Visit 10/28/2018 1:00p Primary Care Gilma Gomez, J18.9 Pneumonia, Office MS, MEDICAL CLAIMS MANAGER-C, CNM unspecified organism J06.9 Acute upper respiratory infection, unspecified M06.9 Rheumatoid arthritis, unspecified Office Visit 10/16/2018 11:00a Primary Care Jami J06.9 Acute upper Office Pennie Thompson, BRAYAN respiratory infection, unspecified R50.9 Fever, unspecified Assessments Date Code Description Provider 03/29/2019 I10 Essential (primary) hypertension Etelvina Chance MD 03/29/2019 M06.9 Rheumatoid arthritis, unspecified Etelvina Chance MD 03/29/2019 E11.9 Type 2 diabetes mellitus without Etelvina Chance MD complications 03/29/2019 F41.9 Anxiety disorder, unspecified Etelvina Chance MD 03/29/2019 R23.9 Unspecified skin changes Etelvina Chance MD 03/24/2019 M70.61 Trochanteric bursitis, right hip Myah [...] Shortness of breath Jose Eduardo Castellon M.D., [facility] 01/11/2019 R10.84 Generalized abdominal pain Gilma Gomez MS, MARLENE-C, CN 01/11/2019 R14.0 Abdominal distension (gaseous) Gilma Gomez MS, KIKI , CN 12/31/2018 M06.9 Rheumatoid arthritis, unspecified Etelvina Chance [...] Chance MD 10/28/2018 J18.9 Pneumonia, unspecified organism Gilma Gomez, MS, MEDICAL CLAIMS MANAGER- C, CNM 10/28/2018 J06.9 Acute upper respiratory infection, Gilma Gomez, MS, MEDICAL CLAIMS MANAGER-C, unspecified CNM 10/28/2018 M06.9 Rheumatoid arthritis, unspecified Alysonen, Gilma, MS, MEDICAL CLAIMS MANAGER-C, CNM 10/16/2018 J06.9 Acute upper respiratory infection, Pennie Farrell PA unspecified 10/16/2018 R50.9 Fever, unspecified Pennie Farrell PA Plan of Treatment 03/29/2019 - Etelvina Chance MDI10 Essential (primary) hypertensionComments:- Improved control but elevated today due to not taking med this am-continue losartan 100mg daily, continue HCTZ 25mg -Low salt diet, exercise as tolerated and weight lossgoal <130/80M06.9 Rheumatoid arthritis, unspecifiedComments:- Continue followup with Rheum Initially started on methotrexate, now stopped ineffective and developed pneumonia on MTX-was on lefluonamide and has been having intermittent diarrhea-Enbrel denied, Humira ordered and will be getting this ywqwzatdL50.9 Type 2 diabetes mellitus without complicationsComments:- Continue followup with Dr. Kelley-Blood sugars have improved -monitor [id number]-EO goal <130/80 and onARB-Continue current vnkrqsnzbibV21.9 Anxiety disorder, unspecifiedComments:-continue sertraline 100 mg daily and clonazepam as needed -well controlled on xbpcyB70.9 Unspecified skin changesComments:-dry cracked skin on heels-Advised cerave or vaseline to help with moisturizing skinAllFollow up:fasting blood work in 3 months ->will order f/u 40min in [address] Bales Functional Status Functional Condition Comment Date Status Independent with all ADL's Active Mental Status Description No Information Available Referrals Description No Information Available
[2019-05-11 18:13] VITALS: BP 148/87
--- NOTE | 2019-05-11 18:32 | UC ---
Throat Pain/Nasal Chace HPI - HPI Summary HPI Summary: Patient is a 63yo female presenting with nasal congestion, PND, and cough x4 days. Notes "weird sound" in her throat when she is lying in bed. Denies SOB and wheezing. Denies n/v/d. Notes chills. Denies fever. Notes productive cough but denies hematemesis. Patient states she felt worse today than yesterday and thought that was a sign she may have pneumonia like she had last year. Patient states she normally takes Humira every two weeks for RA but her PCP told her not to take it until she is seen. Denies taking anything but advil for her symptoms. - History of Current Complaint Chief Complaint: UCRespiratory Stated Complaint: COUGH, FEVER Time Seen by Provider: 05/11/19 18:14 Hx Obtained From: Patient Onset/Duration: Gradual Onset, Lasting Days Pain Intensity: 0 - Allergies/Home Medications Allergies/Adverse Reactions: Allergies Allergy/AdvReac Type Severity Reaction Status Date / Time Adhesive Tape Allergy Severe Rash Verified 05/11/19 18:13 atorvastatin [From Lipitor] Allergy Leg Cramps Verified 05/11/19 18:13 hydrochlorothiazide Allergy Rash Verified 05/11/19 18:13 oxycodone Allergy Rash And Verified 05/11/19 18:13 Itching Sulfa (Sulfonamide Allergy Rash Verified 05/11/19 18:13 Antibiotics) ENVIRONMENTAL/SEASONAL Allergy Congestion Uncoded 05/11/19 18:13 Home Medications: Home Medications Adalimumab [Humira] 20 mg SQ 05/11/19 [History] PMH/Surg Hx/FS Hx/Imm Hx - Surgical History Surgical History: Yes Surgery Procedure, Year, and Place: [place] [facility] [place], [facility] [place] VAR[place]SE [place] [facility] [place] part of Colon removed d/t diverticulitis . CATARACT - Family History Known Family History: Positive: None, Hypertension - Social History Alcohol Use: Daily Alcohol Amount: glass of wine daily Substance Use Type: None Smoking Status (MU): Never Smoked Tobacco - Immunization History Most Recent Influenza Vaccination: fall 2015 Most Recent Tetanus Shot: UP TO DATE Most Recent Pneumonia Vaccination: NA Review of Systems All Other Systems Reviewed And Are Negative: Yes Constitutional: Positive: Chills, Fatigue. Negative: Fever Skin: Positive: Negative Eyes: Positive: Negative ENT: Positive: Nasal Discharge - PND, Sinus Congestion, Sinus Pain/Tenderness - notes sinus pressure. Negative: Sore Throat, Ear Ache Respiratory: Positive: Cough. Negative: Shortness Of Breath Cardiovascular: Positive: Negative. Negative: Palpitations, Chest Pain Gastrointestinal: Positive: Negative. Negative: Abdominal Pain, Vomiting, Diarrhea, Nausea Motor: Positive: Negative Neurovascular: Positive: Negative Musculoskeletal: Negative: Arthralgia, Myalgia Neurological: Positive: Headache. Negative: Weakness, Paresthesia, Numbness Physical Exam Triage Information Reviewed: Yes Appearance: Well-Appearing, No Pain Distress, Well-Nourished Vital Signs: Initial Vital Signs Temp 97.6 F 05/11/19 18:09 Pulse 91 05/11/19 18:09 Resp 16 05/11/19 18:09 BP 148/87 05/11/19 18:09 Pulse Ox 95 05/11/19 18:09 Vital Signs Reviewed: Yes Eyes: Positive: Conjunctiva Clear ENT: Positive: Hearing grossly normal, Pharyngeal erythema, Nasal congestion, Nasal drainage - PND noted, TMs normal, Uvula midline. Negative: TM bulging, TM dull, TM red, Tonsillar swelling, Tonsillar exudate, Hoarse voice, Sinus tenderness Neck exam: Normal Neck: Positive: Supple, Nontender, No Lymphadenopathy Respiratory Exam: Normal Respiratory: Positive: Lungs clear, Normal breath sounds, No respiratory distress, No accessory muscle use. Negative: Crackles, Rhonchi, Stridor, Wheezing Cardiovascular Exam: Normal Cardiovascular: Positive: RRR. Negative: Tachycardia Neurological: Positive: Alert Psychological: Positive: Age Appropriate Behavior Throat Pain/Nasal Course/Dx - Course Course Of Treatment: Patient was concerned for pneumonia or bronchitis. Discussed acute bronchitis and its viral etiology. Instructed patient to call her PCP tomorrow to discuss resuming her humira. Educated patient on signs of pneumonia and to return or go to the ED if they occur. VSS, lungs clear, and no signs of respiratory distress. - Differential Dx/Diagnosis Provider Diagnosis: Upper respiratory infection, acute, Acute bronchitis Discharge ED - Sign-Out/Discharge Documenting (check all that apply): Patient Departure All imaging exams completed and their final reports reviewed: No Studies - Discharge Plan Condition: Stable Disposition: HOME Prescriptions: Benzonatate CAP* [Tessalon 100 MG CAP*] 100 mg PO TID PRN #30 cap PRN Reason: Cough Guaifenesin/Pseudoephedrne HCl [Mucinex D ER 600-60 mg Tablet] 1 each PO BID PRN #14 tab.er.12h PRN Reason: Congestion Patient Education Materials: Upper Respiratory Infection (ED), Acute Bronchitis (ED) Referrals: Etelvina Chance MD [Primary Care Provider] - If Needed Additional Instructions: As discussed, your symptoms are most likely viral in nature. Take Mucinex D as prescribed to help reduce mucus production. Take tessalon perles as prescribed to help alleviate cough. You may use nasal sprays over the counter as directed for symptomatic relief. You may take ibuprofen as directed for pain relief. Get plenty of rest and fluids. Call your PCP tomorrow for further instructions on taking your humira. Return or follow up with your primary care doctor if your symptoms worsen or do not resolve within 10 days. Go to the emergency room if you experience fever, nausea, vomiting, coughing up blood, or difficulty breathing. - Billing Disposition and Condition Condition: STABLE Disposition: Home - Attestation Statements Provider Attestation: I was available for consult. This patient was seen by the [facility]. The patient was not presented to, seen by, or examined by me. -Luis Alberto
== END 2019-05-11 18:55 | disposition home or self-care (01) ==
LOC: UCCORT 16:30
DX: J06.9 Acute upper respiratory infection, unspecified (principal); J20.9 Acute bronchitis, unspecified; Z91.09 Other allergy status, other than to drugs and biological substances; Z88.8 Allergy status to other drugs, medicaments and biological substances; Z88.5 Allergy status to narcotic agent; Z88.2 Allergy status to sulfonamides
CPT/HCPCS: 99212; G0463